=== PATIENT | male | born 1980 | race African-American/Black ===

== ENCOUNTER → 2017-02-18 | Day surgery (SDC) | payer OTHER ==
[~2017-02-18] MED LIST: CIPRO PO; CIPROFLOXACIN500 M1 PO; FLAGYL PO; LORTAB 5-325 M1 EACH PO; NO MEDICATIONS; PYRIDIUM PO
--- NOTE | ~2017-02-18 | CR7 ---
[facility] A Service of [facility] / [facility] RADIOLOGY TEXT RESULTS PATIENT: STEVE ANDERSEN LOCATION: [facility] : [birth year] UNIT #: [id number] AGE: [address]: Valdemar Rodrigues MD SEX: M ORDER DR: [id number] [facility] [place] [address] [place], [place] [address] [id number] O MR#: [id number] Acc #: [id number] NAME: STEVE ANDERSEN : 1980 SEX: M STUDY DATE/TIME: 02/18/2017 UNIT: [facility] ROOM: STUDY DESCRIPTION: CR Abdomen Single AP View Attending Physician: Valdemar Rodrigues M.D. Ordering Physician: Valdemar Rodrigues M.D. Primary Care Physician: Garrett Esquivel Jr., D.O. MEDICAL IMAGING REPORT This report is preliminary unless electronic signature is present EXAM Abdomen portable 02/18/2017 1005 hours HISTORY 36-year-old man with history of kidney stones. Right-sided pain for 1 week. Symptoms for 1 year. COMPARISON None. FINDINGS Supine view of the abdomen and additional view of the pelvis demonstrates a right ureteral double-J stent with the upper loop projecting over the right renal pelvis and the lower loop in the midline bladder. No definite renal or ureteral calculi are seen. There are pelvic phleboliths in the lower pelvis, left and right. No stones are seen along the course of the stent. Bowel gas pattern is unremarkable. IMPRESSION There is a right ureteral double-J stent with upper loop projecting over the expected location of the renal pelvis and the lower loop in the midline bladder. No renal or ureteral calculi are seen. Dictated by... Giana Dominguez M.D. THIS IS AN ELECTRONICALLY VERIFIED REPORT Giana Dominguez M.D. at 02/19/2017 2:31 PM BULL/emma TD: 02/18/2017 15:48 JOB #: [id number] [facility] A Service of [facility] / [facility] RADIOLOGY TEXT RESULTS PATIENT: STEVE ANDERSEN LOCATION: [facility] #: [id number] : [birth year] UNIT #: [id number] AGE: [address]: Valdemar Rodrigues MD SEX: M ORDER DR: MEDICAL IMAGING REPORT Page 1 of 1 COPY
== END | disposition home or self-care (01) ==
LOC: CSUR 08:02
DX: N13.30 Unspecified hydronephrosis (principal); Z87.442 Personal history of urinary calculi; Z53.9 Procedure and treatment not carried out, unspecified reason
CPT/HCPCS: 74000

== ENCOUNTER → 2017-03-13 | Day surgery (SDC) | payer OTHER ==
--- NOTE | ~2017-03-13 | OR ---
Unit #: [id number] #: [id number] Patient: STEVE ANDERSEN [id number] [address] [place], [place] [address] [id number] O MR#: [id number] NAME: STEVE ANDERSEN ROOM: Date of Procedure: 03/13/2017 Admission Date: 03/13/2017 Surgeon: Valdemar Rodrigues M.D. : 1980 Attending Physician: Valdemar Rodrigues M.D. Primary Care Physician: Generic Doctor Not In System OPERATIVE REPORT PREOPERATIVE DIAGNOSIS Right ureteropelvic junction obstruction. POSTOPERATIVE DIAGNOSIS Calcified stent. PROCEDURES PERFORMED Cystoscopy, right retrograde pyelogram, ureteroscopy, stent placement. FINDINGS Calcified stent. He still has part of his initial stent in place. He has a new stent in place as well. DESCRIPTION OF PROCEDURE After informed consent, the patient was taken to the operating room, placed on general anesthetic, positioned lithotomy. His penis and perineum were prepped and draped in the usual sterile fashion. Cystoscopy was performed. He had a normal urethra and the bladder had no tumors. There was a stent that was calcified. Fluoroscopy showed a stent that appeared to be calcified. I tried to place a wire alongside the stent. I tried to remove the stent. Eventually, I was able to get a wire alongside the stent. Using a Pollack catheter, I could get the first initial part of the stent out to the meatus. The part in the collecting system would not unravel. I attempted to do a retrograde pyelogram that showed contrast in the distal ureter, but I could not get contrast into the proximal ureter or into the collecting system. Then, as I was trying to remove the stent, the stent broke. Part of the stent remained in the ureter and in the collecting system. I was able to perform ureteroscopy. I could see the end of the stent in the ureter. I was able to get the wire through the rigid ureteroscope into the collecting system for certain. Then, I attempted to retrieve the stent fragment that was still in the ureter and proximal ureter, I was unsuccessful. I could not grasp the stent and it would still, even if I were to be able to grasp it, I doubt if it would have unraveled since it was calcified. I then placed a new stent and left the fragment of the previous stent in place. I was able to place a 5 x 28 stent with good coil in the bladder and collecting system. I removed the string. I will need to return to the OR with him to perform either a percutaneous nephrolithotomy or repeat ureteroscopy to see if I am able to lithotripsy the existing stent and remove it. The patient has a history of extreme noncompliance. I explained to the patient, his or girlfriend, and his parents who were present in preop and on a previous planned procedure date that had to be canceled, that Unit #: [id number] #: [id number] Patient: STEVE ANDERSEN needs to be more compliant. I had talked about removing this stent and not leaving a new stent. This was not possible today because of the stent being calcified. I will explain this to the family as well and how important it is for him to return to see me in the office, so I can discuss with him his options and possible future risks since he was very noncompliant before. Dictated by... Valdemar Rodrigues M.D. JOYCE/lisandro TD: 03/14/2017 05:41 JOB #: [id number] OPERATIVE REPORT Page 1 of 1 X Valdemar Rodrigues MD X PROCEDURE OPERATIVE NOTE
== END | disposition home or self-care (01) ==
LOC: CSUR 05:52
DX: T83.192A Other mechanical complication of indwelling ureteral stent, initial encounter (principal); Z87.442 Personal history of urinary calculi; Y83.8 Other surgical procedures as the cause of abnormal reaction of the patient, or of later complication, without mention of misadventure at the time of the procedure
CPT/HCPCS: C2617; J0690; J2175; J2250; J2405; J3010